=== PATIENT | female | born 1975 | race Caucasian/White ===

== ENCOUNTER 2024-06-12 09:55 | Emergency (ER) | payer BC, SELFPAY ==
[2024-06-12 10:07] VITALS: BP 161/90; PULSE 78; TEMP 36.5; O2SAT 100; BMI 21.5
--- NOTE | 2024-06-12 10:08 | CT_ITS ---
[address] [address] Patient Name: TERRI YAN MRN: [id number] date: 1975 Sex: F Assigned Patient Location: ER Current Patient Location: .[facility] Accession/Order Number: [id number] Exam Date: 06/12/2024 10:40 Report Date: 06/12/2024 12:17 At the request of: KAREN LARA Procedure: CT soft tissue neck w con EXAMINATION: CT soft tissue neck w con HISTORY: Sore throat, r/o left peritonsillar abscess COMPARISON: No relevant comparison available. TECHNIQUE: Axial, Coronal, and Sagittal CT images created with IV contrast. Dose reduction techniques were achieved by using automated exposure control and/or adjustment of mA and/or kV according to patient size and/or use of iterative reconstruction technique. FINDINGS: NASOPHARYNX: No asymmetry of the fossae of Rosenmuller and torus tubarius. ORAL CAVITY: No visible mass. OROPHARYNX: No asymmetry of the facial and lingual tonsils. HYPOPHARYNX: Irregular rim-enhancing structures within the left parapharyngeal region 14.4 x 13.9 x 13.6 cm suggestive of an abscess. No free air. Extending medially from this area and into the uvula is an area of low density, likely phlegmonous changes, 17.3 x 12.9 cm. LARYNX: No mass or asymmetry of the vocal cords. SINUSES: No significant fluid or mucosal thickening. NECK GLANDS: No visible abnormality of the parotid, submandibular, and thyroid glands. LYMPH NODES: No pathological-appearing or enlarged lymph nodes. VASCULATURE: No suspicious abnormality. BONES: No significant osseous lesions. OTHER: No additional imaging findings. CT/CT soft tissue neck w con IMPRESSION: 1. Abscess versus abscess within left parapharyngeal soft tissues. There is an area adjacent the abscess which appears more consistent with phlegmonous changes rather than a completely developed abscess extending medially from this area into the uvula. 2. Rightward deviation of the airway and mild narrowing. Electronically authenticated by: JENNIFER TAN Date: 06/12/2024 12:17
--- NOTE | 2024-06-12 10:09 | ED_ITS ---
HPI HPI - General Adult General Chief complaint: Upper Respiratory Infection Stated complaint: SORE THROAT Time Seen by Provider: 06/12/24 09:58 History of Present Illness HPI narrative: 48-year-old female presents to ED for sore throat. She was sent from urgent care center who thought she might have a peritonsillar abscess. The patient states she developed some tingling in her throat yesterday and it was worse today so she went to urgent care. She has not had issues like this in the past. It hurts more when she swallows. The pain is moderate and continuous. Related Data Home Medications ?Medication ?Instructions ?Recorded ?Confirmed bupropion HCl 300 mg 24 hr tablet, 300 mg PO .QD 06/12/24 06/12/24 extended release docosahexaenoic acid (dha)-epa 1 cap PO DAILY 06/12/24 06/12/24 capsule galcanezumab-gnlm 120 mg/mL 120 mg subcut .Q MONTH 06/12/24 06/12/24 subcutaneous pen injector (Emgality Pen) levothyroxine 50 mcg tablet 50 mcg PO .QD 06/12/24 06/12/24 magnesium 250 mg tablet 500 mg PO DAILY 06/12/24 06/12/24 nortriptyline 10 mg capsule 20 mg PO .qhs 06/12/24 06/12/24 tizanidine 4 mg tablet 8 mg PO .qhs 06/12/24 06/12/24 Allergies Allergy/AdvReac Type Severity Reaction Status Date / Time No Known Drug Allergies Allergy Verified 06/12/24 10:06 Opioid HPI Opioid Management Most Recent Opioid Data: Last Pain Scale 7 06/12/24 10:32 06/12/24 Last ED Pain Assessment 06/12/24 10:20 Last MAR Pain Assessment 06/12/24 10:32 Review of Systems ROS Narrative A ten point review of systems is negative except as noted above. PFSH PFSH Social History Little interest or pleasure in doing things: not at all Feeling down, depressed, or hopeless: not at all Exam Narrative Exam Narrative: Nurses note and vital signs reviewed and patient is not hypoxic. General: The patient appears well and in no apparent distress. Patient is resting comfortably on cart. Skin: Warm, dry, no pallor noted. There is no rash noted. Head: Normocephalic, atraumatic Eye: Normal conjunctiva, no drainage Ears, Nose, Mouth, and Throat: oral mucosa is moist. Nares patent. There is uvular deviation towards the right and left peritonsillar swelling. She is handling her oral secretions well and there is no swelling to the floor of her mouth. Cardiovascular: Regular Rate and Rhythm Respiratory: Patient is in no distress, no accessory muscle use, lungs are clear to auscultation, no wheezing, rales or rhonchi Back: non-tender GI: Soft and nontender Musculoskeletal: The patient has no evidence of calf tenderness, no pitting edema, symmetrical pulses noted bilaterally Neurological: A&O, normal speech Psychiatric: Cooperative Constitutional Vital Signs, click to edit/add: Last Vital Signs Temp 97.7 F 06/12/24 10:07 Pulse 89 06/12/24 12:44 Resp 14 06/12/24 12:44 BP 136/77 06/12/24 12:44 Pulse Ox 100 06/12/24 12:44 O2 Del Method Room Air 06/12/24 12:44 Course Vital Signs Vital signs: Vital Signs Temperature 97.7 F 06/12/24 10:07 Pulse Rate 78 06/12/24 10:07 Respiratory Rate 16 06/12/24 10:07 Blood Pressure 161/90 H 06/12/24 10:07 Pulse Oximetry 100 06/12/24 10:07 Oxygen Delivery Method Room Air 06/12/24 10:07 Temperature 97.7 F 06/12/24 10:07 Pulse Rate 89 06/12/24 12:44 Respiratory Rate 14 06/12/24 12:44 Blood Pressure 136/77 06/12/24 12:44 Pulse Oximetry 100 06/12/24 12:44 Oxygen Delivery Method Room Air 06/12/24 12:44 Medical Decision Making MDM Narrative Medical decision making narrative: Abscesses noted in the left parapharyngeal area. She has clinical findings of peritonsillar abscess. ENT is not available here and I have spoken to ENT physician at [facility] as well as Jenny Chris, nurse practitioner covering Dr. Dowling. They accept the patient and the patient will go from our emergency department to their emergency department. She is stable and agreeable for transfer. Findings are discussed thoroughly with the patient. Differential Diagnosis Differential Diagnosis: Peritonsillar abscess, peritonsillar cellulitis, tonsillitis Lab Data Lab results reviewed: Yes I reviewed the patient's lab results Labs: Lab Results 06/12/24 06/12/24 Range/Units 10:23 10:26 WBC 11.4 H (4.0-11.0) 10^3/uL RBC 4.83 (4.20-5.40) 10^6/uL Hgb 14.9 (12.0-16.0) g/dL Hct 43.4 (36.0-48.0) % MCV 89.9 (81.0-99.0) fL MCH 30.8 (26.7-34.0) pg MCHC 34.3 (29.9-35.2) g/dL RDW 12.2 (11.0-15.0) % Plt Count 171 (150-450) 10^3/uL MPV 11.4 (9.5-13.5) fL Neut % (Auto) 75.0 (43.0-75.0) % Lymph % (Auto) 15.4 L (20.5-60.0) % Crane % (Auto) 7.8 (1.7-12.0) % Eos % (Auto) 1.1 (0.9-7.0) % Baso % (Auto) 0.4 (0.2-2.0) % Neut # (Auto) 8.6 H (1.4-6.5) 10^3/uL Lymph # (Auto) 1.8 (1.2-3.8) 10^3/uL Crane # (Auto) 0.9 H (0.3-0.8) 10^3/uL Eos # (Auto) 0.1 (0.0-0.7) 10^3/uL Baso # (Auto) 0.0 (0.0-0.1) 10^3/uL Abs Immat Gran (auto) 0.03 (0.00-0.03) 10^3/uL Imm/Tot Granulo (auto) 0.3 (0.0-0.5) % Sodium 140 (136-145) mmol/L Potassium 4.3 (3.5-5.1) mmol/L Chloride 105 (98-107) mmol/L Carbon Dioxide 28.3 (21.0-32.0) mmol/L Anion Gap 11.0 BUN 19.0 H (7.0-18.0) mg/dL Creatinine 0.99 (0.55-1.02) mg/dL Est GFR ( Amer) >60 (>=60 mL/min/1.73m^2) Est GFR (Non-Af Amer) 59 L (>=60 mL/min/1.73m^2) BUN/Creatinine Ratio 19.2 Glucose 99 (74-106) mg/dL Calcium 9.0 (8.5-10.1) mg/dL Monoscreen Negative (NEGATIVE) Streptococcus Screen Negative Imaging Data CT soft tissue neck: Radiologist's impression: ITS Impressions Soft Tissue Neck CT 06/12/24 10:08 IMPRESSION: 1. Abscess versus abscess within left parapharyngeal soft tissues. There is an area adjacent the abscess which appears more consistent with phlegmonous changes rather than a completely developed abscess extending medially from this area into the uvula. 2. Rightward deviation of the airway and mild narrowing. Electronically authenticated by: JENNIFER TAN Date: 06/12/2024 12:17 ADDENDUM: 06/12/24 1238 IMPRESSION: 1. Abscess versus abscess within left parapharyngeal soft tissues. There is an area adjacent the abscess which appears more consistent with phlegmonous changes rather than a completely developed abscess extending medially from this area into the uvula. 2. Rightward deviation of the airway and mild narrowing. Electronically authenticated by: JENNIFER TAN Date: 06/12/2024 12:36 Discharge Plan Discharge Chief Complaint: Upper Respiratory Infection Clinical Impression: Peritonsillar abscess Patient Disposition: [facility] Time of Disposition Decision: 13:30 Discharge Location: [facility] [address] Condition: Fair Mode of Transportation: EMS
[2024-06-12 10:31] LABS: Basophils Percent Auto 0.4 % (0.2-2.0); Eosinophils Absolute Auto 0.1 10^3/uL (0.0-0.7); Eosinophils Percent Auto 1.1 % (0.9-7.0); Hematocrit 43.4 % (36.0-48.0); Hemoglobin 14.9 g/dL (12.0-16.0); Immature Granulocytes Abs Auto 0.03 10^3/uL (0.00-0.03); Immature Granulocytes Pct Auto 0.3 % (0.0-0.5); Lymphocytes Absolute Auto 1.8 10^3/uL (1.2-3.8); Lymphocytes Percent Auto 15.4 % (20.5-60.0); Mean Corpuscular HGB Conc 34.3 g/dL (29.9-35.2); Mean Corpuscular Hemoglobin 30.8 pg (26.7-34.0); Mean Corpuscular Volume 89.9 fL (81.0-99.0); Mean Platelet Volume 11.4 fL (9.5-13.5); Monocytes Absolute Auto 0.9 10^3/uL (0.3-0.8); Monocytes Percent Auto 7.8 % (1.7-12.0); Neutrophils Absolute Auto 8.6 10^3/uL (1.4-6.5); Platelet Count 171 10^3/uL (150-450); Red Blood Count 4.83 10^6/uL (4.20-5.40); Red Cell Distribution Width 12.2 % (11.0-15.0); White Blood Count 11.4 10^3/uL (4.0-11.0)
[2024-06-12] MEDS: DEXAMETHASONE SOD PHOS 10 MG/ML VIAL IV (10:32)
[2024-06-12] MEDS: KETOROLAC TROMETHAMINE 30 MG/ML VIAL IVP (10:32)
[2024-06-12 10:39] LABS: Internal Control Within Normal Limits; Strep A Antigen Screen Negative
[2024-06-12 10:47] LABS: BUN Creatinine Ratio 19.2; Carbon Dioxide 28.3 mmol/L (21.0-32.0); Chloride 105 mmol/L (98-107); Estimated GFR (African America >60 (>=60 mL/min/1.73m^2); Estimated GFR (Non-African Ame 59 (>=60 mL/min/1.73m^2); Glucose 99 mg/dL (74-106); Potassium 4.3 mmol/L (3.5-5.1); Sodium 140 mmol/L (136-145)
[2024-06-12 10:49] LABS: Internal Control Within Normal Limits; Mono Screen NEGATIVE (NEGATIVE)
[2024-06-12] MEDS: AMPICILLIN SODIUM/SULBACTAM NA 3 GM in 0.9 % SODIUM CHLORIDE 100 ML IV (10:58)
[2024-06-12 12:44] VITALS: BP 136/77; PULSE 89; O2SAT 100
[2024-06-12 14:56] VITALS: BP 138/64; PULSE 86; TEMP 37.2; O2SAT 100
[2024-06-12 15:20] VITALS: BP 138/64; PULSE 86; TEMP 37.2; O2SAT 100
== END 2024-06-12 15:20 | disposition short-term general hospital (02) ==
PROVIDERS: Emergency Provider Emergency Medicine; PCP Family Medicine
DX: J36 Peritonsillar abscess (principal)
CPT/HCPCS: 36415; 70491; 80048; 85025; 86308; 87070; 87880; 96365; 96375; 99285; J0295; J1100; J1885; Q9967